=== PATIENT | female | born 1950 | race American Indian/Alaskan Native ===

== ENCOUNTER 2016-12-02 10:06 | Outpatient (CLI) | payer MEDICARE ==
--- NOTE | 2016-12-02 10:51 | Mammography Report ---
Digital diagnostic right mammogram with CAD. History: Six-month followup study for right asymmetry. Findings: Comparison is made to the 2 previous studies. There is intermediate density of the fibroglandular tissue. There is no evidence of mass or architectural distortion. No suspicious calcifications are seen. Impression: No suspicious findings. BI-RADS code: 2. Recommendation: Return to routine screening schedule.
== END 2016-12-02 10:07 | disposition home or self-care (01) ==
LOC: MAMMO 10:06
PROVIDERS: ATTEND Internal Medicine
DX: R92.8 Other abnormal and inconclusive findings on diagnostic imaging of breast (principal)
CPT/HCPCS: G0206-RT

== ENCOUNTER 2017-11-24 10:15 | Outpatient (CLI) | payer MEDICARE ==
--- NOTE | 2017-11-24 13:14 | Mammography Report ---
Bilateral mammogram: Compared to 05/03/16 and 05/24/16. CAD study utilized. Findings: Predominance of adipose tissue bilaterally. No distinct mass or microcalcification. No significant interval change. Normal axilla. Impression: Benign findings. Annual followup recommended. BI-RADS CATEGORY: 2 = Benign ACR BI-RADS MAMMOGRAPHIC CODES: 0 = Needs additional imaging evaluation; 1 = Negative; 2 = Benign; 3 = Probably benign; 4 = Suspicious; 5 = Malignant; 6 = Known biopsy-proven malignancy COMMENT: 1. Dense breast tissue, i.e., adenosis, fibrocystic changes, etc., may obscure an underlying neoplasm. 2. Approximately 10% of cancers are not detected with mammography. 3. A negative mammography report should not delay biopsy if a clinically suspicious mass is present. COMMENT: Patient follow-up letters are generated in [employer].
== END 2017-11-24 10:16 | disposition home or self-care (01) ==
LOC: MAMMO 10:15
PROVIDERS: ATTEND Internal Medicine
DX: Z12.31 Encounter for screening mammogram for malignant neoplasm of breast (principal)
CPT/HCPCS: 77067

== ENCOUNTER 2019-06-20 13:50 | Outpatient (CLI) | payer MEDICARE ==
--- NOTE | 2019-06-25 16:17 | Mammography Report ---
DIGITAL SCREENING MAMMOGRAM WITH CAD, 06/20/2019 INDICATION: Routine screening mammography. TECHNIQUE: Digital bilateral 2D mammography was obtained in the craniocaudal and mediolateral obliq ue projections. This examination was interpreted with the benefit of Computer-Aided Detection analysi s. COMPARISON: 11/24/2017 FINDINGS: Breast Density: The breasts are heterogeneously dense, which may obscure small masses. There is no evidence of dominant mass, suspicious calcifications or architectural distortion in eithe r breast. IMPRESSION: No mammographic evidence of malignancy. Follow up recommendation: Routine yearly BI-RADS Category 1: Negative. A "normal" or negative report should not discourage follow up or biopsy of a clinically significant f inding. A written summary of these findings will be mailed to the patient. The patient will be entered into a mammography reporting system which will generate a reminder letter for the patient's next appointmen t at the appropriate interval. The [employer] recommends yearly mammograms starting at age 40 and continuing as l brianda as a woman is in good health. Breast MRI is recommended for women with an approximate 20-25% or greater lifetime risk of breast cancer, including women with a strong family history of breast or ova tamara cancer or who have been treated for Hodgkin's disease. Signer Name: Romel Franklin MD Signed: 06/25/2019 4:12 PM Workstation Name: [id number]
== END 2019-06-20 13:51 | disposition home or self-care (01) ==
LOC: MAMMO 13:50
PROVIDERS: ATTEND Internal Medicine
DX: Z12.31 Encounter for screening mammogram for malignant neoplasm of breast (principal)
CPT/HCPCS: 77067

== ENCOUNTER 2021-08-04 10:49 | Outpatient (CLI) | payer MEDICARE ==
--- NOTE | 2021-08-05 10:23 | Ultrasound Report ---
ULTRASOUND BREAST LEFT LIMITED, 08/04/2021 CLINICAL INFORMATION / INDICATION: ABNORMAL MAMMOGRAM. Patient presents as a callback from screening mammogram for further evaluation of a nodular density in the left breast. TECHNIQUE: Targeted ultrasound evaluation was performed of the area of interest. COMPARISON: Prior mammogram 07/08/2021 FINDINGS: Corresponding with the nodular density seen on recent mammogram, there is a 1.5 cm benign simple cyst seen in the left breast 1:00 position located 5 cm from the nipple. Incidental note is made of an ad ditional 4 mm benign cyst in the 12:00 position located 5 cm from the nipple, and a benign coarse mak cification in the 2:00 position located 6 cm from the nipple (a corresponding benign calcification in this area has been stable mammographically). IMPRESSION: 1. A benign cyst accounts for the mammographic finding. No suspicious sonographic abnormality identif ied. Follow up recommendation: Routine yearly BI-RADS Category 2: BENIGN. A normal or "negative" report should not preclude biopsy or follow-up of a clinically suspicious find ing. Signer Name: Julia Katz MD Signed: 08/05/2021 10:18 AM Workstation Name: [id number]
== END 2021-08-04 10:50 | disposition home or self-care (01) ==
LOC: MAMMO 10:49
PROVIDERS: ATTEND Internal Medicine
DX: N60.02 Solitary cyst of left breast (principal)